=== PATIENT | male | born 1985 | race Caucasian/White ===

== ENCOUNTER 2019-06-16 20:31 | Emergency (ER) | payer OTHER ==
[~2019-06-16] VITALS: Ht 182.9 cm; Wt 145.1 kg
== END 2019-06-17 08:11 | disposition home or self-care (01) ==
LOC: ER 20:31
DX: N20.0 Calculus of kidney (principal); R10.32 Left lower quadrant pain

== ENCOUNTER 2019-06-30 07:53 | Outpatient (CLI) | payer OTHER | END 2019-06-30 07:54 | disposition home or self-care (01) | LOC: RAD 07:53 | DX: Z01.811 Encounter for preprocedural respiratory examination (principal) ==

== ENCOUNTER → 2019-07-30 | Outpatient (CLI) | payer OTHER | END | disposition home or self-care (01) | LOC: NUCLEAR 07:00 | DX: C82.00 Follicular lymphoma grade I, unspecified site (principal) | CPT/HCPCS: 78815; A9552 ==

== ENCOUNTER 2020-10-30 20:21 | Emergency (ER) | payer OTHER ==
[~2020-10-30] VITALS: Ht 182.9 cm; Wt 149.7 kg
== END 2020-10-30 22:55 | disposition home or self-care (01) ==
LOC: ER 20:21
DX: J06.9 Acute upper respiratory infection, unspecified (principal); J32.8 Other chronic sinusitis; Z03.818 Encounter for observation for suspected exposure to other biological agents ruled out

== ENCOUNTER 2023-03-19 03:55 | Emergency (ER) | payer OTHER ==
[~2023-03-19] VITALS: Ht 182.9 cm; Wt 149.7 kg
[2023-03-19] MEDS ORDERED: COZAAR50 MG PO (04:06)
== END 2023-03-19 05:38 | disposition home or self-care (01) ==
LOC: ER 03:55
DX: R11.10 Vomiting, unspecified (principal); R19.7 Diarrhea, unspecified

== ENCOUNTER 2023-12-07 01:07 | Emergency (ER) | payer OTHER ==
[~2023-12-07] VITALS: Ht 182.9 cm; Wt 134.7 kg
[~2023-12-07 01:07] MED LIST: COZAAR50 MG PO
== END 2023-12-07 04:52 | disposition home or self-care (01) ==
LOC: ER 01:07
DX: R00.2 Palpitations (principal); I10 Essential (primary) hypertension